=== PATIENT | female | born 1980 | race Caucasian/White ===

== ENCOUNTER 2020-12-25 13:21 | Outpatient (REF) | payer OTHER, SELFPAY | END 2020-12-25 13:22 | disposition home or self-care (01) | LOC: HO.HMGCLDS 13:21 | PROVIDERS: Visit Provider Internal Medicine | DX: Z20.822 Contact with and (suspected) exposure to COVID-19 (principal) | CPT/HCPCS: C9803; U0003; U0005 ==

== ENCOUNTER 2021-11-02 07:24 | Outpatient (REF) | payer OTHER, SELFPAY ==
[2021-11-02 11:44] LABS: Hematocrit 35.4 % (37.0-47.0); Hemoglobin 11.3 g/dl (12.0-16.0); Mean Corpuscular HGB Conc 31.9 g/dl (31.0-35.0); Mean Corpuscular Hemoglobin 26.3 pg (27.0-33.0); Mean Corpuscular Volume 82.3 fL (80.0-98.0); Mean Platelet Volume 11.2 fL (9.4-12.3); Platelet Count 317 X10*3/uL (160-400); Red Cell Distribution Width 15.9 % (11.0-16.0)
[2021-11-02 12:22] LABS: Vitamin D 25-OH Total 22.1 ng/mL (>30)
[2021-11-02 12:31] LABS: Alanine Aminotransferase 12 U/L (0-31); Albumin Level 4.3 g/dL (3.5-5.0); Alkaline Phosphatase 47 U/L (39-117); Anion Gap 11 (12-20); Aspartate Amino Transferase 18 U/L (5-31); Bilirubin Total 0.4 mg/dL (0.0-1.0); Blood Urea Nitrogen 8 mg/dL (9-16); Calcium 9.1 mg/dL (8.4-10.2); Carbon Dioxide 23 mmol/L (22-29); Chloride 109 mmol/L (96-108); Cholesterol 199 mg/dL; Estimated Glomerular Filt Rate > 60; Glucose Fasting 94 mg/dL (60-99); HDL Cholesterol 46 mg/dL; Iron 20 mcg/dL (30-160); LDL Cholesterol Calculated 126 mg/dl; Percent Iron Saturation 6 % (15-50); Potassium 4.1 mmol/L (3.3-5.1); Sodium 139 mmol/L (135-145); Total Iron Binding Capacity 358 mcg/dL (228-428); Total Protein 7.2 g/dL (6.5-8.0); Triglycerides 135 mg/dL; Unsaturated Iron Binding 338 ug/dL
[2021-11-02 12:32] LABS: Folate 13.8 ng/mL (> or = 4.0); Vitamin B12 953 pg/mL (200-900)
== END 2021-11-02 07:25 | disposition home or self-care (01) ==
LOC: HO.HMGCLDS 07:24
PROVIDERS: Visit Provider Internal Medicine
DX: Z00.00 Encounter for general adult medical examination without abnormal findings (principal)
CPT/HCPCS: 36415; 80053; 80061; 82306; 82607; 82746; 83540; 85027

== ENCOUNTER 2022-04-15 11:01 | Outpatient (REF) | payer OTHER, SELFPAY ==
--- NOTE | ~2022-04-15 | XR_ITS ---
EXAMINATION: XR TIBIA AND FIBULA, LEFT CLINICAL INFORMATION: Contusion of the left lower leg COMPARISON: None TECHNIQUE: AP and lateral views of the left tibia and fibula were obtained. FINDINGS: No fracture or cortical disruption. Alignment is appropriate at the knee and ankle. Focal anterior soft tissue swelling at the level of the proximal tibia. XR/XR tibia fibula LT 2V IMPRESSION: Soft tissue swelling anteriorly at the proximal tibia level with no underlying fracture.
== END 2022-04-15 11:02 | disposition home or self-care (01) ==
LOC: HO.HMGCX 11:01
PROVIDERS: Visit Provider Nurse Practitioner Acute Care
DX: S80.12XA Contusion of left lower leg, initial encounter (principal)
CPT/HCPCS: 73590

== ENCOUNTER 2022-07-01 09:09 | Outpatient (REF) | payer OTHER, SELFPAY ==
[2022-07-01 11:25] LABS: MANUAL DIFF FLAG NO
[2022-07-01 11:42] LABS: Basophils Percent Auto 0.5 % (0-2); Eosinophils Absolute Auto 0.1 X10*3/uL (0.0-0.4); Eosinophils Percent Auto 2.3 % (0-4); Hematocrit 40.1 % (37.0-47.0); Hemoglobin 13.5 g/dl (12.0-16.0); Imm Gran Abs Auto 0.02 X10*3/uL (0.00-0.03); Imm Gran Pct Auto 0.3 % (0.0-0.4); Lymphocytes Percent Auto 32.8 % (20-40); Mean Corpuscular HGB Conc 33.7 g/dl (31.0-35.0); Mean Corpuscular Hemoglobin 30.6 pg (27.0-33.0); Mean Corpuscular Volume 90.9 fL (80.0-98.0); Mean Platelet Volume 10.9 fL (9.4-12.3); Monocytes Absolute Auto 0.5 X10*3/uL (0.1-1.2); Monocytes Percent Auto 7.5 % (2-11); Neutrophils Absolute Auto 3.5 x10*3/uL (2.0-8.3); Neutrophils Percent Auto 56.6 % (45-73); Platelet Count 316 X10*3/uL (160-400); Red Blood Count 4.41 X10*6/uL (4.20-5.50); Red Cell Distribution Width 12.9 % (11.0-16.0); White Blood Count 6.1 X10*3/uL (4.8-10.8)
[2022-07-01 12:11] LABS: Iron 80 mcg/dL (30-160); Percent Iron Saturation 25 % (15-50); Total Iron Binding Capacity 314 mcg/dL (228-428); Unsaturated Iron Binding 234 ug/dL
[2022-07-01 12:18] LABS: Vitamin D 25-OH Total 23.4 ng/mL (>30)
[2022-07-01 12:20] LABS: ~Hepatitis B Surface Antibody NONREACTIVE (Nonreactive)
[2022-07-04 21:42] LABS: Rubeola IgG (Measles) >300.00 AU/mL
[2022-07-05 05:51] LABS: TS Negative Control Passed; TS Panel A 4; TS Panel B 0; TS Positive Control Passed; TSpotTB Negative (Negative)
== END 2022-07-01 09:10 | disposition home or self-care (01) ==
LOC: HO.HMGCLDS 09:09
PROVIDERS: PCP Internal Medicine; Visit Provider Internal Medicine
DX: Z00.00 Encounter for general adult medical examination without abnormal findings (principal); Z11.1 Encounter for screening for respiratory tuberculosis; E55.9 Vitamin D deficiency, unspecified; D50.9 Iron deficiency anemia, unspecified
CPT/HCPCS: 36415; 82306; 83540; 85025; 86481; 86706; 86735; 86762; 86765; 86787

== ENCOUNTER 2023-06-01 10:25 | Outpatient (AMB) | payer OTHER, SELFPAY ==
[2023-06-01 10:28] VITALS: BP 122/72; PULSE 75; O2SAT 98; BMI 25.1
--- NOTE | 2023-06-01 10:28 | A.OFFPC_ITS ---
Vital Signs 06/01/23 10:28 Height 5 ft 5 in Weight 151 lb BMI 25.1 BP 122/72 Blood Pressure Location Lt brachial Position Sitting Pulse 75 Pulse Source Pulse Oximeter Pulse Oximetry (%) 98 Oxygen Delivery Method Room Air Intake Visit Reasons: Annual PE Intake Note: Patient is here for her physical today. Is last menstrual period known: Yes Last menstrual period: 05/15/23 Allergies No Known Allergies Allergy (Verified 06/01/23 10:31) Medication List - Last Reconciled 06/01/23 by Carina Lynch MD albuterol sulfate 90 mcg/actuation (Ventolin HFA) 1 inh inhalation QID PRN cholecalciferol (vitamin D3) 25 mcg PO DAILY ferrous sulfate (FeroSul) 325 mg PO DAILY mecobalamin (vitamin B12) 1,000 mcg PO DAILY montelukast 10 mg PO DAILY multivitamin 1 tab PO DAILY Tobacco use date assessed: 06/01/23 Dental Screening Dental Screen Date: 06/01/23 Did you have a dental visit in the last 12 months?: No Did you have a dental problem in the last 6 months where you did not have access to dental care?: No Was dental information given to patient?: No HPI Annual PE HPI Details Patient presents for physical. She complains of restless leg syndrome getting worse for the last few months. Patient has a feeling like she needs to move her legs after sitting for long time. She denies insomnia depression. 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 She misses her fiance who lives in [place] planning to move to .. next year. 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 1. Little interest or pleasure in doing things: not at all 2. Feeling down, depressed, or hopeless: not at all 3. Trouble falling or staying asleep, or sleeping too much: not at all 4. Feeling tired or having little energy: not at all 5. Poor appetite or overeating: not at all 6. Feeling bad about yourself - or that you are a failure or have let yourself or your family down: not at all 7. Trouble concentrating on things, such as reading the newspaper or watching television: not at all 8. Moving or speaking so slowly that other people could have noticed. Or the opposite - being so fidgety or restless that you have been moving around a lot more than usual: not at all 9. Thoughts that you would be better off or of hurting yourself in some way: not at all Total score: 0 Depression Screening Interpretation: Negative Source: Developed by Drs. Jak Talbot, Vandana Calhoun, Mike Ayala and colleagues, with an educational marin from [employer]. Thrive Questionnaire Date Thrive assessed: 11/01/21 I am a: Patient What is your living situation today?: I have a steady place to live Within the past 12 months, did the food you bought not last and you didn't have the money to get more?: Never true Within the past 12 months, did you worry whether your food would run out before you got money to buy more?: Never true Do you have trouble paying for medicines?: No Do you have trouble getting transportation to medical appointments?: No Do you have trouble paying your heating and electricity bill?: No Do you have trouble taking care of your child, family member or friend?: No Do you have trouble with day-to-day activities such as bathing, preparing meals, shopping, managing finances, etc.?: No Are you currently unemployed and looking for a job?: No Are you interested in more education?: No AUDIT C Alcohol Use Questionnaire (AUDIT-C) 1. How often do you have a drink containing alcohol?: Monthly or less 2. How many drinks containing alcohol do you have on a typical day when you are drinking?: 1 or 2 3. How often do you have six or more drinks on one occasion?: Never Total Score: 1 MARIA DOLORES-7 AMB Questionnaire MARIA DOLORES-7 Date MARIA DOLORES - 7 assessed: 11/01/21 Feeling nervous, anxious, or on edge: 0 = Not at all Not being able to stop or control worryin = Not at all Worrying too much about different things: 0 = Not at all Trouble relaxin = Not at all Being so restless that it is hard to sit still: 0 = Not at all Becoming easily annoyed or irritable: 0 = Not at all Feeling afraid as if something awful might happen: 0 = Not at all Total MARIA DOLORES-7 score (0-4 normal; 5-9 mild; 10-14 moderate; 15-21 severe): 0 Source: Developed by Drs. Jak Talbot, Vandana Calhoun, Mike Ayala and colleagues, with an educational marin from [employer]. Review of Systems Const All systems reviewed & are unremarkable except as noted in HPI and below Reports no additional complaints Eyes Reports no additional complaints ENT Reports no additional complaints Card Reports no additional complaints Resp Reports no additional complaints GI Reports no additional complaints Reports no additional complaints Physical exam (Primary Care) Vital Signs: Last Vital Signs Pulse 75 06/01/23 10:28 BP 122/72 06/01/23 10:28 Pulse Ox 98 06/01/23 10:28 Oxygen Delivery Method Room Air 06/01/23 10:28 BMI result Body Mass Index 25.1 Tobacco/Smoking Status: Tobacco use Status Tobacco use date assessed 06/01/23 06/01/23 10:40 Patient Tobacco Use Status Never used Tobacco 06/01/23 10:40 e-Cigarette/Vaping Use Never Used 06/01/23 10:40 PHQ-9: PHQ-9 Score PHQ-9: Total score 0 06/01/23 10:40 Depression Screening Interpretation: Negative Thrive Assessment: Date of Thrive Assessment Date Thrive assessed 11/01/21 06/01/23 10:40 Const General: no acute distress HENMT Head: Yes normal to inspection Ears: hearing grossly normal bilaterally General nose exam: Normal external nose present Mouth: Normal oral and palatal mucosa present Throat: Yes posterior oropharynx normal Eyes General: appearance normal, both eyes and all related structures Neck Neck: Yes no lymphadenopathy and Yes supple Resp Effort & Inspection: normal respiratory effort Auscultation: clear to auscultation bilaterally Cardio Rhythm: regular rhythm Heart sounds: S1 normal heart sound present and S2 normal heart sound present GI Inspection: Yes normal to inspection Palpation (GI): Soft to palpation Percussion: Yes normal to percussion Auscultation: normal bowel sounds Assessment and Plan Assessment & Plan (1) Iron deficiency anemia: Code(s): D50.9 - Iron deficiency anemia, unspecified Plan: Continue iron supplement check iron studies (2) Annual physical exam: Code(s): Z00.00 - Encounter for general adult medical examination without abnormal findings Plan: Well-balanced diet regular exercise discussed with the patient. she will have a mammogram and will return for Pap smear (3) Vitamin D deficiency: Code(s): E55.9 - Vitamin D deficiency, unspecified (4) RLS (restless legs syndrome): Code(s): G25.81 - Restless legs syndrome Plan: TRY ROPINIROLE 0.25 MG Orders: Orders Lipid Panel Today D50.9 - Iron deficiency anemia, unspecified, E55.9 - Vitamin D deficiency, unspecified, Z00.00 - Encounter for general adult medical examination without abnormal findings Vitamin B12 and Folate Today D50.9 - Iron deficiency anemia, unspecified, E55.9 - Vitamin D deficiency, unspecified, Z00.00 - Encounter for general adult medical examination without abnormal findings IRON PROFILE Today D50.9 - Iron deficiency anemia, unspecified Comprehensive [place]. Panel Fast Today D50.9 - Iron deficiency anemia, unspecified, E55.9 - Vitamin D deficiency, unspecified, Z00.00 - Encounter for general adult medical examination without abnormal findings Complete Blood Count Auto Diff Today D50.9 - Iron deficiency anemia, unspeci fied, E55.9 - Vitamin D deficiency, unspecified, Z00.00 - Encounter for general adult medical examination without abnormal findings TSH reflex Free T4 Today D50.9 - Iron deficiency anemia, unspecified, E55.9 - Vitamin D deficiency, unspecified, Z00.00 - Encounter for general adult medical examination without abnormal findings MM screening mammo BI Today Z12.31 - Encounter for screening mammogram for malignant neoplasm of breast Medications: New ropinirole 0.25 mg PO BEDTIME 30 tabs 1RF 30 days Coding Level of Care Code Est Pt Prev Care 40-64y(71953) Diagnoses Iron deficiency anemia D50.9 Annual physical exam Z00.00 Vitamin D deficiency E55.9 RLS (restless legs syndrome) G25.81
== END 2023-06-01 11:36 | disposition home or self-care (01) ==
PROVIDERS: Visit Provider Internal Medicine
DX: D50.9 Iron deficiency anemia, unspecified (principal); Z00.00 Encounter for general adult medical examination without abnormal findings; E55.9 Vitamin D deficiency, unspecified; G25.81 Restless legs syndrome
CPT/HCPCS: 99396

== ENCOUNTER 2023-06-03 08:41 | Outpatient (REF) | payer OTHER, SELFPAY ==
[2023-06-03 11:11] LABS: MANUAL DIFF FLAG NO
[2023-06-03 11:13] LABS: Basophils Percent Auto 0.3 % (0-2); Eosinophils Absolute Auto 0.2 X10*3/uL (0.0-0.4); Eosinophils Percent Auto 2.2 % (0-4); Hematocrit 39.2 % (37.0-47.0); Hemoglobin 13.3 g/dl (12.0-16.0); Imm Gran Abs Auto 0.02 X10*3/uL (0.00-0.03); Imm Gran Pct Auto 0.3 % (0.0-0.4); Lymphocytes Absolute Auto 1.9 X10*3/uL (1.2-4.9); Lymphocytes Percent Auto 27.9 % (20-40); Mean Corpuscular HGB Conc 33.9 g/dl (31.0-35.0); Mean Corpuscular Hemoglobin 30.5 pg (27.0-33.0); Mean Corpuscular Volume 89.9 fL (80.0-98.0); Mean Platelet Volume 11.2 fL (9.4-12.3); Monocytes Absolute Auto 0.5 X10*3/uL (0.1-1.2); Monocytes Percent Auto 7.2 % (2-11); Neutrophils Absolute Auto 4.2 x10*3/uL (2.0-8.3); Neutrophils Percent Auto 62.1 % (45-73); Platelet Count 260 X10*3/uL (160-400); Red Blood Count 4.36 X10*6/uL (4.20-5.50); Red Cell Distribution Width 13.2 % (11.0-16.0); White Blood Count 6.8 X10*3/uL (4.8-10.8)
[2023-06-03 11:36] LABS: Alanine Aminotransferase 18 U/L (0-31); Albumin Level 4.2 g/dL (3.5-5.0); Alkaline Phosphatase 47 U/L (39-117); Anion Gap 8 (12-20); Aspartate Amino Transferase 21 U/L (5-31); Bilirubin Total 0.3 mg/dL (0.0-1.0); Blood Urea Nitrogen 12 mg/dL (9-16); Carbon Dioxide 24 mmol/L (22-29); Chloride 111 mmol/L (96-108); Cholesterol 181 mg/dL (<200); Estimated Glomerular Filt Rate > 60; Glucose Fasting 101 mg/dL (60-99); HDL Cholesterol 41 mg/dL (>40); Iron 49 mcg/dL (30-160); LDL Cholesterol Calculated 120 mg/dL (<100); Percent Iron Saturation 20 % (15-50); Potassium 4.3 mmol/L (3.3-5.1); Sodium 139 mmol/L (135-145); Total Iron Binding Capacity 243 mcg/dL (228-428); Total Protein 7.1 g/dL (6.5-8.0); Triglycerides 102 mg/dL (<150); Unsaturated Iron Binding 194 ug/dL
[2023-06-03 11:53] LABS: TSH reflex Free T4 2.22 uIU/mL (0.32-4.0)
[2023-06-03 12:00] LABS: Folate 9.8 ng/mL (> or = 4.0); Vitamin B12 1049 pg/mL (200-900)
== END 2023-06-03 08:42 | disposition home or self-care (01) ==
LOC: HO.HMGCLDS 08:41
PROVIDERS: PCP Internal Medicine; Visit Provider Internal Medicine
DX: Z00.00 Encounter for general adult medical examination without abnormal findings (principal); D50.9 Iron deficiency anemia, unspecified; E55.9 Vitamin D deficiency, unspecified
CPT/HCPCS: 36415; 80053; 80061; 82607; 82746; 83540; 84443; 85025

== ENCOUNTER 2023-07-01 10:01 | Outpatient (REF) | payer OTHER, SELFPAY ==
--- NOTE | ~2023-07-01 | MM_ITS ---
EXAMINATION: MM SCREENING DIGITAL BREAST TOMOSYNTHESIS, BILATERAL CLINICAL INFORMATION: Screening. Asymptomatic. COMPARISON: Mammography: This is a baseline mammogram. TECHNIQUE: Digital breast tomosynthesis is performed in both the craniocaudal and mediolateral oblique views along with computer-aided detection (CAD). Synthesized 2D images are generated from the tomosynthesis. FINDINGS: The breasts are heterogeneously dense, which may obscure small masses (ACR BI-RADS breast composition Category c). There are no significant masses, abnormal calcifications, or other abnormalities. MM/MM tomosynthesis screening BI IMPRESSION: No mammographic evidence of malignancy. ASSESSMENT: BI-RADS BI-RADS 1 - Negative RECOMMENDATION: Routine annual mammography screening. 1 year F/U This examination should not preclude the clinical evaluation of a suspicious palpable abnormality. This patient's information was entered into a reminder system with a target due date for their next mammogram.
== END 2023-07-01 10:02 | disposition home or self-care (01) ==
LOC: HO.MAMMO 10:01
PROVIDERS: PCP Internal Medicine; Visit Provider Internal Medicine
DX: Z12.31 Encounter for screening mammogram for malignant neoplasm of breast (principal)
CPT/HCPCS: 77063; 77067

== ENCOUNTER → 2023-07-01 10:15 | Outpatient (BNV) | payer OTHER, SELFPAY | PROVIDERS: PCP Internal Medicine; Visit Provider Radiology Diagnostic Radiology | DX: Z12.31 Encounter for screening mammogram for malignant neoplasm of breast (principal) | CPT/HCPCS: 77063; 77067 ==

== ENCOUNTER 2023-09-19 07:26 | Outpatient (AMB) | payer OTHER, SELFPAY ==
[2023-09-19 07:38] VITALS: BP 110/60; PULSE 67; O2SAT 100; BMI 26.0
--- NOTE | 2023-09-19 07:38 | MHC.PC.OV ---
Vital Signs 09/19/23 07:38 Height 5 ft 5 in Weight 156 lb BMI 26.0 BP 110/60 Blood Pressure Location Lt brachial Position Sitting Pulse 67 Pulse Source Pulse Oximeter Pulse Oximetry (%) 100 Oxygen Delivery Method Room Air Intake Visit Reasons: ?palpitations, fatigue Intake Note: Pt is here today c/o palpitations and fatigue Allergies No Known Allergies Allergy (Verified 09/19/23 07:40) Medication List - Last Reconciled 09/19/23 by Carina Lynch MD cholecalciferol (vitamin D3) 25 mcg PO DAILY ferrous sulfate (FeroSul) 325 mg PO DAILY mecobalamin (vitamin B12) 1,000 mcg PO DAILY montelukast 10 mg PO DAILY ropinirole 0.25 mg PO BEDTIME 90 days valacyclovir (Valtrex) 500 mg PO DAILY Tobacco use date assessed: 09/19/23 Dental Screening Dental Screen Date: 09/19/23 Did you have a dental visit in the last 12 months?: Yes Did you have a dental problem in the last 6 months where you did not have access to dental care?: No Was dental information given to patient?: Patient has dentist HPI ?palpitations, fatigue HPI Details Pt c/o 2 weeks feeling fatigued, decreased energy at the end of the day, intermittent fluttering in the chest in the evening when resting. Patient exercises 3 times a week at the gym, cardio and weightlifting and denies any exercise induced palpitations chest pain or shortness of breath. 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 She denies anxiety, depression change in appetite or sleep pattern. Patient usually sleeps about 6 hours a day. 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 1. Little interest or pleasure in doing things: not at all 2. Feeling down, depressed, or hopeless: not at all 3. Trouble falling or staying asleep, or sleeping too much: not at all 4. Feeling tired or having little energy: nearly every day 5. Poor appetite or overeating: not at all 6. Feeling bad about yourself - or that you are a failure or have let yourself or your family down: not at all 7. Trouble concentrating on things, such as reading the newspaper or watching television: not at all 8. Moving or speaking so slowly that other people could have noticed. Or the opposite - being so fidgety or restless that you have been moving around a lot more than usual: not at all 9. Thoughts that you would be better off or of hurting yourself in some way: not at all Total score: 3 Depression Screening Interpretation: Negative Depression Screening Done: Yes Source: Developed by Drs. Jak Talbot, Vandana Calhoun, Mike Ayala and colleagues, with an educational marin from [employer]. Thrive Questionnaire Date Thrive assessed: 09/19/23 I am a: Patient What is your living situation today?: I have a steady place to live Within the past 12 months, did the food you bought not last and you didn't have the money to get more?: Never true Within the past 12 months, did you worry whether your food would run out before you got money to buy more?: Never true Do you have trouble paying for medicines?: No Do you have trouble getting transportation to medical appointments?: No Do you have trouble paying your heating and electricity bill?: No Do you have trouble taking care of your child, family member or friend?: No Do you have trouble with day-to-day activities such as bathing, preparing meals, shopping, managing finances, etc.?: No Are you currently unemployed and looking for a job?: No Are you interested in more education?: No AUDIT C Alcohol Use Questionnaire (AUDIT-C) 1. How often do you have a drink containing alcohol?: Never Total Score: 0 MARIA DOLORES-7 AMB Questionnaire MARIA DOLORES-7 Date MARIA DOLORES - 7 assessed: 09/19/23 Feeling nervous, anxious, or on edge: 0 = Not at all Not being able to stop or control worryin = Not at all Worrying too much about different things: 0 = Not at all Trouble relaxin = Not at all Being so restless that it is hard to sit still: 0 = Not at all Becoming easily annoyed or irritable: 0 = Not at all Feeling afraid as if something awful might happen: 0 = Not at all Total MARIA DOLORES-7 score (0-4 normal; 5-9 mild; 10-14 moderate; 15-21 severe): 0 Source: Developed by Drs. Jak Talbot, Vandana Calhoun, Mike Ayala and colleagues, with an educational marin from [employer]. Review of Systems Const All systems reviewed & are unremarkable except as noted in HPI and below Reports no additional complaints Eyes Reports no additional complaints ENT Reports no additional complaints Card Reports no additional complaints Resp Reports no additional complaints GI Reports no additional complaints Reports no additional complaints Physical exam (Primary Care) Vital Signs: Last Vital Signs Pulse 67 09/19/23 07:38 BP 110/60 09/19/23 07:38 Pulse Ox 100 09/19/23 07:38 Oxygen Delivery Method Room Air 09/19/23 07:38 BMI result Body Mass Index 26.0 Tobacco/Smoking Status: Tobacco use Status Tobacco use date assessed 09/19/23 09/19/23 07:42 Patient Tobacco Use Status Never used Tobacco 09/19/23 07:42 e-Cigarette/Vaping Use Never Used 09/19/23 07:42 PHQ-9: PHQ-9 Score PHQ-9: Total score 3 09/19/23 07:57 Depression Screening Interpretation: Negative Thrive Assessment: Date of Thrive Assessment Date Thrive assessed 09/19/23 09/19/23 07:57 Const General: no acute distress HENMT Ears: hearing grossly normal bilaterally Mouth: Normal oral and palatal mucosa present Eyes General: appearance normal, both eyes and all related structures Resp Effort & Inspection: normal respiratory effort Auscultation: clear to auscultation bilaterally Cardio Rhythm: regular rhythm Heart sounds: S1 normal heart sound present and S2 normal heart sound present GI Inspection: Yes normal to inspection Palpation (GI): Soft to palpation Percussion: Yes normal to percussion Auscultation: normal bowel sounds Assessment and Plan Assessment & Plan (1) RLS (restless legs syndrome): Code(s): G25.81 - Restless legs syndrome Plan: Continue Ropinirole (2) Vitamin D deficiency: Code(s): E55.9 - Vitamin D deficiency, unspecified Plan: Continue vitamin-D and check the level (3) Iron deficiency anemia: Code(s): D50.9 - Iron deficiency anemia, unspecified Plan: Continue iron supplement and check CBC (4) Fatigue: Code(s): R53.83 - Other fatigue Plan: Check CBC comprehensive panel TSH vitamin B12 and D level. Well-balanced exercise regular physical activity, stress management discussed with the patient. Orders: Orders Vitamin D 25-OH Total Today D50.9 - Iron deficiency anemia, unspecified, E55.9 - Vitamin D deficiency, unspecified, G25.81 - Restless legs syndrome, R53.83 - Other fatigue Comprehensive Met. Panel Today D50.9 - Iron deficiency anemia, unspecified, E55.9 - Vitamin D deficiency, unspecified, G25.81 - Restless legs syndrome, R53.83 - Other fatigue Complete Blood Count Auto Diff Today D50.9 - Iron deficiency anemia, unspecified, E55.9 - Vitamin D deficiency, unspecified, G25.81 - Restless legs syndrome, R53.83 - Other fatigue Vitamin B12 and Folate Today D50.9 - Iron deficiency anemia, unspecified, E55.9 - Vitamin D deficiency, unspecified, G25.81 - Restless legs syndrome, R53.83 - Other fatigue TSH reflex Free T4 Today D50.9 - Iron deficiency anemia, unspecified, E55.9 - Vitamin D deficiency, unspecified, G25.81 - Restless legs syndrome, R53.83 - Other fatigue Coding Level of Care Code Est Pt Level 3 (79777) Diagnoses RLS (restless legs syndrome) G25.81 Vitamin D deficiency E55.9 Iron deficiency anemia D50.9 Fatigue R53.83
== END 2023-09-19 08:46 | disposition home or self-care (01) ==
PROVIDERS: PCP Internal Medicine; Visit Provider Internal Medicine
DX: G25.81 Restless legs syndrome (principal); E55.9 Vitamin D deficiency, unspecified; D50.9 Iron deficiency anemia, unspecified; R53.83 Other fatigue
CPT/HCPCS: 99213

== ENCOUNTER 2023-09-19 08:16 | Outpatient (REF) | payer OTHER, SELFPAY ==
[2023-09-19 11:07] LABS: MANUAL DIFF FLAG NO
[2023-09-19 11:10] LABS: Basophils Percent Auto 0.3 % (0-2); Eosinophils Absolute Auto 0.2 X10*3/uL (0.0-0.4); Eosinophils Percent Auto 1.8 % (0-4); Hematocrit 40.2 % (37.0-47.0); Hemoglobin 13.2 g/dl (12.0-16.0); Imm Gran Abs Auto 0.03 X10*3/uL (0.00-0.03); Imm Gran Pct Auto 0.3 % (0.0-0.4); Lymphocytes Absolute Auto 1.9 X10*3/uL (1.2-4.9); Lymphocytes Percent Auto 18.7 % (20-40); Mean Corpuscular HGB Conc 32.8 g/dl (31.0-35.0); Mean Corpuscular Hemoglobin 30.2 pg (27.0-33.0); Mean Platelet Volume 11.1 fL (9.4-12.3); Monocytes Absolute Auto 0.7 X10*3/uL (0.1-1.2); Monocytes Percent Auto 6.8 % (2-11); Neutrophils Absolute Auto 7.4 x10*3/uL (2.0-8.3); Neutrophils Percent Auto 72.1 % (45-73); Platelet Count 285 X10*3/uL (160-400); Red Blood Count 4.37 X10*6/uL (4.20-5.50); Red Cell Distribution Width 13.4 % (11.0-16.0); White Blood Count 10.2 X10*3/uL (4.8-10.8)
[2023-09-19 12:27] LABS: Alanine Aminotransferase 29 U/L (0-31); Albumin Level 4.3 g/dL (3.5-5.0); Alkaline Phosphatase 57 U/L (39-117); Anion Gap 11 (12-20); Aspartate Amino Transferase 25 U/L (5-31); Bilirubin Total 0.5 mg/dL (0.0-1.0); Blood Urea Nitrogen 8 mg/dL (9-16); Carbon Dioxide 25 mmol/L (22-29); Chloride 109 mmol/L (96-108); Estimated Glomerular Filt Rate > 60; Glucose Random 100 mg/dL (60-115); Potassium 3.8 mmol/L (3.3-5.1); Sodium 141 mmol/L (135-145); Total Protein 7.3 g/dL (6.5-8.0)
[2023-09-19 12:36] LABS: Folate 9.9 ng/mL (> or = 4.0); Vitamin B12 1091 pg/mL (200-900)
[2023-09-19 12:45] LABS: TSH reflex Free T4 2.11 uIU/mL (0.32-4.0); Vitamin D 25-OH Total 18.6 ng/mL (>30)
== END 2023-09-19 08:17 | disposition home or self-care (01) ==
LOC: HO.HMGCLDS 08:16
PROVIDERS: PCP Internal Medicine; Visit Provider Internal Medicine
DX: G25.81 Restless legs syndrome (principal); D50.9 Iron deficiency anemia, unspecified; R53.83 Other fatigue; E55.9 Vitamin D deficiency, unspecified
CPT/HCPCS: 36415; 80053; 82306; 82607; 82746; 84443; 85025

== ENCOUNTER 2024-04-08 08:07 | Outpatient (REF) | payer OTHER, SELFPAY ==
[2024-04-08 10:50] LABS: Vitamin D 25-OH Total 55.6 ng/mL (>30)
== END 2024-04-08 08:08 | disposition home or self-care (01) ==
LOC: HO.HMGCLDS 08:07
PROVIDERS: PCP Internal Medicine; Visit Provider Internal Medicine
DX: E55.9 Vitamin D deficiency, unspecified (principal)
CPT/HCPCS: 36415; 82306

== ENCOUNTER 2024-09-04 16:24 | Outpatient (AMB) | payer OTHER, SELFPAY ==
--- NOTE | 2024-09-04 16:29 | MHC.OFFWIV ---
Intake Vital Signs 09/04/24 16:30 Height 5 ft 5 in BP 120/80 Blood Pressure Location Lt brachial Position Sitting Pulse 80 Pulse Source Pulse Oximeter Temp 98.2 F Temp Source Oral Pulse Oximetry (%) 98 Oxygen Delivery Method Room Air Intake Visit Reasons: EP sore throat, congestion Intake Note: Patient here for congestion, cough, runny nose and headache that started about 2 days. Patient Tobacco Use Status: Never used Tobacco Allergies No Known Allergies Allergy (Verified 09/04/24 16:31) Do you need a note to return to daycare/school/sports/work: No HPI EP sore throat, congestion HPI Details This note is constructed using voice recognition software. While every effort has been made to ensure accuracy, supervisor testing errors may have been included. The patient is a 43 year old female who presents to the clinic today with cough, congestion, body aches, sore throat, fevers since yesterday. She has been taking Tylenol and naproxen for her symptoms, with little relief. She denies shortness of breath. 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 Cognitive needs: No Hearing needs: No Vision needs: No Review of Systems Const All systems reviewed & are unremarkable except as noted in HPI and below Physical Exam Vital Signs: Last Vital Signs Temp 98.2 F 09/04/24 16:30 Pulse 80 09/04/24 16:30 BP 120/80 09/04/24 16:30 Pulse Ox 98 09/04/24 16:30 Oxygen Delivery Method Room Air 09/04/24 16:30 Const General: cooperative, healthy appearing, comfortable and no acute distress Orientation/consciousness: patient oriented x3 Limitations: no limitations HEENT Head: Yes normal to inspection Ears: hearing grossly normal bilaterally, external ears normal, EAC's normal, mastoids normal (no TTP) bilaterally and TM abnormal (on the left) bulging and erythematous General nose exam: Normal external nose present, Normal nares present and No nasal discharge present Face and sinus: Yes normal facial exam and Yes sinuses nontender Mouth: Normal oral and palatal mucosa present and moist mucous membranes Throat: Yes tonsils normal, Yes uvula midline and Yes posterior oropharynx abnormal (Erythema) Eyes General: appearance normal, both eyes and all related structures Neck Neck: Yes normal visual inspection Resp Effort & Inspection: normal respiratory effort, able to speak in complete sentences, Actively coughing, no respiratory distress, not tachypneic, no tripod positioning and no use of accessory muscles Auscultation: clear to auscultation bilaterally Cardio Jugular venous distension: no JVD Rate: regular rate Rhythm: regular rhythm Heart sounds: S1 normal heart sound present, S2 normal heart sound present, no click, no gallops, no murmurs and no rubs Skin General skin exam: no rashes or lesions noted, elasticity normal and turgor normal Neuro General: patient oriented x3 Extrem General: Yes normal to inspection and Yes no clubbing, cyanosis or edema Results AMB Rapid Strep AMB Rapid Strep Negative Last Edit by AMNA Winter on 09/04/24 16:44 Assessment & Plan Assessment & Plan (1) Otitis media: Code(s): H66.90 - Otitis media, unspecified, unspecified ear Qualifiers: Otitis media type: suppurative Chronicity: acute Laterality: left Recurrence: non-recurrent Spontaneous tympanic membrane rupture: without spontaneous rupture Qualified Code(s): H66.002 - Acute suppurative otitis media without spontaneous rupture of ear drum, left ear Plan: Supportive measures encouraged and reviewed. Antibiotic sent to requested pharmacy, advised patient to take antibiotics until completed and not to stop if feeling better, unless the patient has side effects. Advised patient to follow up with primary care provider with worsening or failure to resolve. Viral swab obtained to rule out Covid, Influenza, and RSV based on symptoms. Advised mask wearing while symptomatic and quarantine per current CDC guidelines. Reviewed at home support methods including hydration, humidification, vix vapor rub, sinus rinse, and otc treatment options. Discussed treatment with antiviral therapy for covid with paxlovid and with Tamiflu for influenza, including appropriate use and side effects, and need to start medication within 5 day of symptom onset, preferably within 48 hours of symptom onset. Patient wishes to proceed with tamiflu and decline paxlovid antiviral therapy if positive testing. Advised follow up with worsening symptoms such as dyspnea at rest, which would require emergent evaluation. Plan See above for full details and plan. Orders: Orders SARS-CoV2/FLU/RSV Today J06.9 - Acute upper respiratory infection, unspecified AMB Rapid Strep Screen Today Z13.9 - Encounter for screening, unspecified Medications: New amoxicillin-pot clavulanate 875-125 mg 1 tab PO BID 7 days 14 tabs 0RF Coding Level of Care Code Est Pt Level 3 (84298) Diagnoses Non-recurrent acute suppurative otitis media of left ear without spontaneous rupture of tympanic membrane H66.002 Otitis media type: suppurative Chronicity: acute Laterality: left Recurrence: non-recurrent Spontaneous tympanic membrane rupture: without spontaneous rupture
[2024-09-04 16:30] VITALS: BP 120/80; PULSE 80; TEMP 36.8; O2SAT 98
== END 2024-09-04 16:47 | disposition home or self-care (01) ==
PROVIDERS: PCP Internal Medicine; Visit Provider Registered Nurse
DX: Z13.9 Encounter for screening, unspecified (principal); H66.002 Acute suppurative otitis media without spontaneous rupture of ear drum, left ear

== ENCOUNTER 2024-09-04 16:24 | Outpatient (REF) | payer OTHER, SELFPAY ==
[2024-09-05 12:32] LABS: Influenza A PCR NEGATIVE (Negative); Influenza B PCR NEGATIVE (Negative); Resp Syncy Virus RNA Qual PCR NEGATIVE (Negative); SARS COV2 PCR INHOUSE POSITIVE (Negative)
== END 2024-09-04 16:25 | disposition home or self-care (01) ==
LOC: HO.LNP 16:24
PROVIDERS: PCP Internal Medicine; Visit Provider Registered Nurse
DX: J06.9 Acute upper respiratory infection, unspecified (principal)
CPT/HCPCS: 0241U; 87880

== ENCOUNTER 2025-07-02 08:12 | Outpatient (REF) | payer OTHER, SELFPAY ==
--- OUTSIDE RECORDS SUMMARY | 2025-07-01 14:45 | XMS_ITS | Encounter Summary ---
Author Organization [employer] Address [address] [facility] [address] [place] [address] Care Team Providers Care Machine Tender Name Role Phone Unavailable Primary Care Provider Unavailabl e Reason for Referral * Consultation (Routine) - Authorized Specialty Diagnoses / Procedures Referred By Contac t Referred To Contact Cardiology Diagnoses Other chest pain SOB (shortness of breath) Nicole Patel MD [address] [place] [address] Phone: tel: fax: [facility] [address] [place] [address] Phone: tel: fax: Referral ID Status Reason Start Date Expiration Date Visits Requested Visits Authorized [id number] Authorized Specialty Services Required 5 07/01/2026 1 1 * Imaging (Routine) - Authorized Specialty Diagnoses / Procedures Referred By Contac t Referred To Contact Radiology Diagnoses Encounter for screening mammogram for malignant neoplasm of breast Procedures BI Mammogram Screening Tomosynthesis Bilateral Nicole Patel MD [address] [place] [address] Phone: tel: fax: [facility] [address] [place], [place] Phone: tel: fax: Referral ID Status Reason Start Date Expiration Date V isits Requested Visits Authorized [id number] Authorized 07/01/2025 07/01/2026 1 1 * Consultation (Routine) - Pending Review Specialty Diagnoses / Procedures Referred By Contlouise t Referred To Contact Obstetrics and Gynecology Diagnoses Pap smear for cervical cancer screening Nicole Patel MD [address] [place] [address] Phone: tel: fax: Referral ID Status Reason Start Date Expiration Date Visits Requested Visits Authorized [id number] Pending Review Specialty Services Required 07/01/2026 1 1 Scheduling Instructions Refer to [facility] Encounter Details Date Type Department Care Team (Late st Contact Info) Description 07/01/2025 2:45 PM EDT Telemedicine [facility] [address] [place] [id number] Nicole Patel MD [address] [place] [phone] Pap smear for cervical cancer screening (Primary Dx); Cold sore; Seasonal allergies; Encounter for screening mammogram for malignant neoplasm of breast; Other chest pain; SOB (shortness of breath); Iron deficiency anemia, unspecified iron deficiency anemia type; Anxiety; RLS (restless legs syndrome) Social History Tobacco Use Types Packs/Day Years Used Date Smoking Tobacco: Former Cigarettes Passive Smoke Exposure: Never Smokeless Tobacco: Never Comments Unknown Sex and Gender Information Value Date Recorded Sex Assigned at Female 07/18/2022 10:22 AM EDT Legal Sex Female 10:22 AM EDT Gender Identity Female 07/18/2022 10:22 AM EDT Sexual Orientation Lesbian or Rubi 07/18/2022 10 :22 AM EDT documented as of this encounter Progress Notes * Nicole Yoder MD - 07/01/2025 2:45 PM EDT SUBJECTIVE: Josi Wise is a 44 y.o. year old female who presents for New patient . 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 Lives with: and kid - EtOH socially once a month 2 drinks - smoking cigarettes denies - recreational drug use denies Diet:regular Exercise:sedentary LMP:regular 06/12/25 Surgeries/Hospitalizations: none PAP smear: referral done today Mammogram due PMHx:anemia, vitamin b deficiency, restless leg syndrome, seasonal allergies FMHx:father diabetes, mother RA, fibromyalgia, benign brain tumor, brother psoriatic arthritis, grandmother alzheimer's, breast cancer, grandfather stomach cancer Immunizations: Acute Concerns: Chest discomfort left side with deep inspiration, and sometimes pressure like, sometimes accompanied nausea, SOB 2 months ago ankle sprain better now Anxiety, restless patient has been going through new changes in her life Patient reports she has cold sores that comes and goes on her lip area generally in winter for thathe was prescribed Valtrex which helped, she was wondering if new prescription can be sent to the pharmacy today Social History Social History Narrative Not on file Problem List[1] Family History[2] Review of Systems Constitutional: Negative. HENT: Negative. Respiratory: Negative. Cardiovascular: Positive for chest pain. Negative for palpitations and leg swelling. Follow Up: No follow-ups on file. Medications Ordered Prior to Encounter[3] Problem List Items Addressed This Visit Cold sore Relevant Medications valACYclovir (Valtrex) 500 MG tablet Seasonal allergies Relevant Medications montelukast (Singulair) 10 MG tablet Encounter for screening mammogram for malignant neoplasm of breast Relevant Orders BI Mammogram Screening Tomosynthesis Bilateral Other chest pain Relevant Orders Comprehensive Metabolic Panel Hemoglobin A1c HIV-1/2 Antigen and Antibodies, Fourth Generation, with Reflexes Hepatitis C Antibody with Reflex to HCV, RNA, Quantitative, Real-Time PCR Lipid Panel, Standard Vitamin D, 25-Hydroxy, Total, Immunoassay TSH with Reflex to Free T4 Referral to Cardiology SOB (shortness of breath) Relevant Orders Vitamin D, 25-Hydroxy, Total, Immunoassay TSH with Reflex to Free T4 Referral to Cardiology Iron deficiency anemia Relevant Orders CBC auto differential Iron And Total Iron Binding Capacity Ferritin Vitamin B12/Folate, Serum Panel Anxiety Relevant Orders TSH with Reflex to Free T4 RLS (restless legs syndrome) Relevant Orders CBC auto differential Other Visit Diagnoses Pap smear for cervical cancer screening - Primary Relevant Orders Referral to Obstetrics / Gynecology [1] Patient Active Problem List Diagnosis Tipped teeth Dental abscess Dental caries Dental calculus Gingival bleeding Cold sore Seasonal allergies Encounter for screening mammogram for malignant neoplasm of breast Other chest pain SOB (shortness of breath) Iron deficiency anemia Anxiety RLS (restless legs syndrome) [2] Family History Problem Relation Name Age of Onset Glaucoma Mother Other (dry eyes) Mother [3] Current Outpatient Medications on File Prior to Visit Medication Sig Dispense Refill albuterol 108 (90 Base) MCG/ACT inhaler INHALE 1 PUFF 4 TIMES DAILY NEEDED FOR SHORTNESS OF BREAT/WHEEZING cyanocobalamin (Vitamin B-12) 100 MCG tablet Take 100 mcg by mouth in the morning. ferrous sulfate 325 (65 Fe) MG tablet Take 325 mg by mouth with breakfast. montelukast (Singulair) 10 MG tablet Take 10 mg by mouth in the morning. valACYclovir (Valtrex) 500 MG tablet No current facility-administered medications on file prior to visit. documented in this encounter Plan of Treatment Scheduled Orders Name Type Priority Associated Diagnoses Orde r Schedule BI Mammogram Screening Tomosynthesis Bilateral Imaging Routine Encounter for screening mammogram for malignant neoplasm of breast Expected: 07/01/2025, Expires: 08/31/2026 CBC auto differential Lab Routine Iron deficiency anemia, unspecified iron deficiency anemia type RLS (restless legs syndrome) Expected: 07/01/2025 (Approximate), Expires: 07/01/2026 Comprehensive Metabolic Panel Lab Routine Other chest pain Expected: 07/01/2025 (Approximate), Expires: 07/01/2026 Hemoglobin A1c Lab Routine Other chest pain Expected: 07/01/2025 (Approximate), Expires: 07/01/2026 HIV-1/2 Antigen and Antibodies, Fourth Generation, with Reflexes Lab Routine Other chest pain Expected: 07/01/2025 (Approximate), Expires: 07/01/2026 Hepatitis C Antibody with Reflex to HCV, RNA, Quantitative, Real-Time PCR Lab Routine Other chest pain Expected: 07/01/2025, Expires: 07/01/2026 Lipid Panel, Standard Lab Routine Other chest pain Expected: 07/01/2025 (Approximate), Expires: 07/01/2026 Vitamin D, 25-Hydroxy, Total, Immunoassay Lab Routine Other chest pain SOB (shortness of breath) Expected: 07/01/2025 (Approximate), Expires: 07/01/2026 TSH with Reflex to Free T4 Lab Routine Other chest pain SOB (shortness of breath) Anxiety Expected: 07/01/2025 (Approximate), Expires: 07/01/2026 Iron And Total Iron Binding Capacity Lab Routine Iron deficiency anemia, unspecified iron deficiency anemia type Expected: 07/01/2025, Expires: 07/01/2026 Ferritin Lab Routine Iron deficiency anemia, unspecified iron deficiency anemia type Expected: 07/01/2025, Expires: 07/01/2026 Vitamin B12/Folate, Serum Panel Lab Routine Iron deficiency anemia, unspecified iron deficiency anemia type Expected: 07/01/2025, Expires: 07/01/2026 Scheduled Referrals Name Type Priority Associated Diagnoses Order Schedule Referral to Obstetrics / Gynecology Outpatient Referral Routine Pap smear for cervical cancer screening Expected: 07/01/2025 (Approximate), Expires: 07/01/2026 Referral to Cardiology Outpatient Referral Routine Other chest pain SOB (shortness of breath) Expected: 07/01/2025 (Approximate), Expires: 07/01/2026 documented as of this encounter Visit Diagnoses Diagnosis Pap smear for cervical cancer screening- Primary Screening for malignant neoplasm of the cervix Cold sore Herpes simplex without mention of complication Seasonal allergies Allergic rhinitis, cause unspecified Encounter for screening mammogram for malignant neoplasm of breast Other chest pain SOB (shortness of breath) Shortness of breath Iron deficiency anemia, unspecified iron deficiency anemia type Anxiety Anxiety state, unspecified RLS (restless legs syndrome) Restless legs syndrome (RLS) documented in this encounter
--- OUTSIDE RECORDS SUMMARY | 2025-07-02 08:28 | XMS_ITS | Encounter Summary ---
Author Organization [employer] Address [address] [place] [address] Care Team Providers Care Pipe Finishing Supervisor Name Role Phone Unavailable Primary Care Provider Unavailabl e Encounter Details Date Type Department Care Team (Latest Contact Info) Description 06/30/2025 Travel Social History Tobacco Use Types Packs/Day Years [...] AM EDT documented as of this encounter Plan of Treatment Not on file documented as of this encounter Visit Diagnoses Not on filedocumented in this encounter
--- OUTSIDE RECORDS SUMMARY | 2025-07-02 08:28 | XMS_ITS | Encounter Summary ---
Author Organization [email or web address] Address [address] [place] [address] [place] [address] Care Team Providers Care Pierce And Shave Press Operator Name Role Phone Unavailable Primary Care Provider Unavailabl e Reason for Visit * Reason Comments Med Refill Encounter Details Date Type Department Care Team (Late st Contact Info) Description 10/25/2024 Refill [facility] [address] [place] [address] Nicole Donahue MD [address] [place] [address] Social History Tobacco Use Types Packs/Day Years [...]
--- OUTSIDE RECORDS SUMMARY | 2025-07-02 08:28 | XMS_ITS ---
Author Name [facility] Organization Unknown Problems Problem Status Onset Date Problem Type Date of Resoluti on Source Sprain of right ankle active 2025-03-27 ProblemAct ENS_AONECT Encounters Encounter Type Encounter Reason Primary Diagnosis Location Date Ambulatory [facility] [place] 05/25/2025 Ambulatory [facility] [place] 04/26/2025 Ambulatory [facility] [place] 03/28/2025 Ambulatory [facility] [place] 03/28/2025 Ambulatory [facility] [place] 03/28/2025 Ambulatory [facility] [place] 03/27/2025 Ambulatory [facility] [place] 03[facility]27/2025 Ambulatory [facility] [place] 03/27/2025 Ambulatory [facility] [place] 03/27/2025 Ambulatory [facility] [place] 03/24/2025 Ambulatory [facility] [place] 03/24/2025
--- OUTSIDE RECORDS SUMMARY | 2025-07-02 08:28 | XMS_ITS | Encounter Summary ---
Author Organization [employer] Address [address] [place] [address] Care Team Providers Care Fry Cook Name Role Phone Unavailable Primary Care Provider Unavailabl e Encounter Details Date Type Department Care Team (Latest Contact Info) Description 07/01/2025 Travel Social History Tobacco Use Types Packs/Day [...]
--- OUTSIDE RECORDS SUMMARY | 2025-07-02 08:28 | XMS_ITS | Clinical Summary ---
Author Organization [employer] Address [address] [facility] [address] [place] [address] Care Team Providers Care Supervisor Coke Handling Name Role Phone Unavailable Primary Care Provider Unavailabl e Allergies No known active allergies Medications albuterol 108 (90 Base) MCG/ACT inhaler INHALE 1 PUFF 4 TIMES DAILY NEEDED FOR SHORTNESS OF BREAT/WHEEZING 3 Active montelukast (Singulair) 10 MG tablet Take 10 mg by mouth in the morning. 3 Active valACYclovir (Valtrex) 500 MG tablet 3 Active ferrous sulfate 325 (65 Fe) MG tablet Take 325 mg by mouth with breakfast. Active cyanocobalamin (Vitamin B-12) 100 MCG tablet Take 100 mcg by mouth in the morning. Active valACYclovir (Valtrex) 500 MG tabletIndicatio ns:Cold sore Take 1 tablet (500 mg) by mouth 2 times daily for 7 days. 14 tablet 5 07/08/20 25 Active montelukast (Singulair) 10 MG tabletIndicatio ns:Seasonal allergies Take 1 tablet (10 mg) by mouth Once per day. 30 tablet 11 5 07/01/20 26 Active Active Problems Problem Noted Date Diagnosed Date Cold sore 07/01/2025 Seasonal allergies 07/01/2025 Encounter for screening mamm ogram for malignant neoplasm of breast 07/01/2025 Other chest pain 07/01/2025 SOB (shortness of breath) 07/01/2025 Iron deficiency anemia 07/01/2025 Anxiety 07/01/2025 RLS (restless legs syndrome) 07/01/2025 Tipped teeth 09/01/2023 Dental abscess 09/01/2023 Dental caries 09/01/2023 Dental calculus 09/01/2023 Gingival bleeding 09/01/2023 Encounters Date Type Department Care Team Description 07/01/2025 2:45 PM EDT Telemedicine [facility] [address] [place] [phone] Nicole Patel MD Pap smear for cervical cancer screening (Primary Dx); Cold sore; Seasonal allergies; Encounter for screening mammogram for malignant neoplasm of breast; Other chest pain; SOB (shortness of breath); Iron deficiency anemia, unspecified iron deficiency anemia type; Anxiety; RLS (restless legs syndrome) 07/01/2025 Travel 06/30/2025 Travel from Last 3 Months Immunizations Immunization Administration Dates Next Due Influenza, seasonal, injectable, preservative fr ee 06/05/2024 Family History Medical History Relation Name Comments Glaucoma Mother dry eyes Mother Relation Name Status Comments Mother Social History Tobacco Use Types Packs/Day Years Used Date Smoking Tobacco: Former Cigarettes Passive Smoke Exposure: Never Smokeless Tobacco: Never Tobacco Cessation:Counseling Given: Not Answered Comments Unknown Sex and Gender Information Value Date Recorded Sex Assigned at Female 07/18/2022 10:22 AM EDT Legal Sex Female 10:22 AM EDT Gender Identity Female 07/18/2022 10:22 AM EDT Sexual Orientation Lesbian or Rubi 07/18/2022 10 :22 AM EDT Last Filed Vital Signs Vital Sign Reading Time Taken Comments Blood Pressure 110/66 09/01/2023 8:10 AM EST Pulse 68 09/01/2023 8:10 AM EST Temperature - - Respiratory Rate - - Oxygen Saturation - - Inhaled Oxygen Concentration - - Weight - - Height - - Body Mass Index - - Plan of Treatment Health Maintenance Due Date Last Done Comments Depression Screening 1981 HIV Screening 1981 SDOH Screening 1981 Alcohol/Substance Use Screening 1993 Family Planning (PISQ) 1996 HPV Vaccines (1 - 3-dose series) 1996 Hepatitis C Screening 11/28/1999 Pap Smear 2002 Cervical Cancer Screening 11/28/2011 HPV/Cotest 11/28/2011 Mammogram 2021 Hepatitis B Vaccines (2 of 3 - 19+ 3-dose series) 08/08/2022 07/11/2022 Dental Oral Exam 03/03/2024 09/01/2023 Dental Prophylaxis 03/03/2024 09/01/2023 Dental X-Ray: Bitewings 09/02/2024 09/01/2023 Tobacco Screening 03/28/2025 03/28/2024 COVID-19 Vaccine ( season) 2025 06/03/2022, 08/06/2021, 01/20/2021, Additional history exists Influenza Vaccine (#1) 2025 , 06/03/2022, 08/06/2021 Disability Screening 06/30/2026 06/30/2025 Dental X-Ray: Full Mouth 09/02/2026 09/01/2023 Zoster Vaccines (1 of 2) 11/28/2031 DTaP/Tdap/Td Vaccines (3 - Td or Tdap) 07/01/2032 07/01/2022, 08/28/2013 RSV Patients and Patients Aged 60 years or older (1 - 1-dose 75+ series) 2056 HIB Vaccines Aged Out No longer eligi ble based on patient's age to complete this topic Hepatitis A Vaccines Aged Out No long er eligible based on patient's age to complete this topic IPV Vaccines Aged Out No longer eligi ble based on patient's age to complete this topic Meningococcal B Vaccine Aged Out No l onger eligible based on patient's age to complete this topic Meningococcal Vaccine Aged Out No daljit calixto eligible based on patient's age to complete this topic Pneumococcal Vaccine: Pediatrics (0 to 5 Years) and At-Risk Patients (6 to 49) Years Aged Out No longer eligible based on patient's age to complete this topic RSV under 20 months Aged Out No longe r eligible based on patient's age to complete this topic Rotavirus Vaccines Aged Out No longer eligible based on patient's age to complete this topic Procedures Procedure Name Priority Date/Time Associated Diagnosis Comments PROPHYLAXIS - ADULT Routine 09/01/2023 8 :00 AM EST Dental calculus INTRAORAL - COMPLETE SERIES OF RADIOGRAPHIC IMAGES Routine 09/01/2023 8:00 AM EST Tipped teeth Dental abscess Dental caries Dental calculus Gingival bleeding PERIODIC ORAL EVALUATION - ESTABLISHED PATIENT Routine 09/01/2023 8:00 AM EST from Last 3 Months or Most Recently Relevant to Health Maintenance Insurance [facility] , [address] [place] [address] DENTAL - [facility]
[2025-07-02 11:13] LABS: MANUAL DIFF FLAG NO
[2025-07-02 11:28] LABS: Hematocrit 37.8 % (37.0-47.0); Hemoglobin 12.8 g/dl (12.0-16.0); Imm Gran Abs Auto 0.02 X10*3/uL (0.00-0.03); Imm Gran Pct Auto 0.3 % (0.0-0.4); Lymphocytes Absolute Auto 2.1 X10*3/uL (1.2-4.9); Mean Corpuscular HGB Conc 33.9 g/dl (31.0-35.0); Mean Corpuscular Hemoglobin 29.8 pg (27.0-33.0); Mean Corpuscular Volume 88.1 fL (80.0-98.0); NRBC Abs Auto 0.000 X10*3/uL (0.0-0.012); NRBC Pct Auto 0.0 /100WBC (0.0-0.2); Platelet Count 285 X10*3/uL (160-400); Red Blood Count 4.29 X10*6/uL (4.20-5.50); White Blood Count 7.8 X10*3/uL (4.8-10.8)
[2025-07-02 12:05] LABS: Alanine Aminotransferase 45 U/L (0-31); Albumin Level 4.5 g/dL (3.5-5.0); Alkaline Phosphatase 50 U/L (39-117); Anion Gap 11 (12-20); Aspartate Amino Transferase 27 U/L (5-31); Blood Urea Nitrogen 11 mg/dL (9-16); Calcium 9.0 mg/dL (8.4-10.2); Carbon Dioxide 21 mmol/L (22-29); Chloride 111 mmol/L (96-108); Cholesterol 238 mg/dL (<200); Estimated Glomerular Filt Rate > 60; Ferritin 30 ng/mL (10-250); HDL Cholesterol 39 mg/dL (>40); Iron 126 mcg/dL (30-160); Percent Iron Saturation 51 % (15-50); Potassium 3.8 mmol/L (3.3-5.1); Sodium 139 mmol/L (135-145); Total Iron Binding Capacity 245 mcg/dL (228-428); Total Protein 7.2 g/dL (6.5-8.0); Triglycerides 205 mg/dL (<150); Unsaturated Iron Binding 119 ug/dL
[2025-07-02 12:13] LABS: Folate 7.3 ng/mL (> or = 4.0); Vitamin B12 622 pg/mL (200-900)
[2025-07-03 04:59] LABS: HIV Num 1 0.04 S/CO (0.00-0.99); ~HepC Num1 0.16 S/CO (0.00-0.79); ~Hepatitis C Antibody Nonreactive (Nonreactive)
== END 2025-07-02 08:13 | disposition home or self-care (01) ==
LOC: HO.HHCL 08:12
PROVIDERS: PCP Internal Medicine; Visit Provider Internal Medicine
DX: Z11.59 Encounter for screening for other viral diseases (principal); Z11.4 Encounter for screening for human immunodeficiency virus [HIV]; Z13.1 Encounter for screening for diabetes mellitus; D50.9 Iron deficiency anemia, unspecified; F41.9 Anxiety disorder, unspecified; R07.89 Other chest pain; R06.02 Shortness of breath
CPT/HCPCS: 36415; 80053; 80061; 82306; 82607; 82728; 82746; 83036; 83540; 84443; 85025; 86803; 87389

== ENCOUNTER 2025-08-25 12:46 | Outpatient (REF) | payer OTHER, SELFPAY ==
--- NOTE | ~2025-08-25 | MM_ITS ---
EXAMINATION(S): 1. MM DIAGNOSTIC DIGITAL BREAST TOMOSYNTHESIS, LEFT 2. TARGETED ULTRASOUND OF THE LEFT BREAST CLINICAL INFORMATION: Left breast pain. According to the patient, pain in the entire left breast, but mainly superior and lateral. COMPARISON: December 24, 2024 and July 01, 2023 TECHNIQUE: Digital breast tomosynthesis is performed in both the mediolateral oblique and craniocaudal views along with computer-aided detection (CAD). Synthesized 2D images are generated from the tomosynthesis. FINDINGS: BREAST COMPOSITION: The breasts are heterogeneously dense, which may obscure small masses. LEFT BREAST: No significant masses, suspicious calcifications or other abnormalities are seen. Targeted ultrasound of the left breast was performed at the location of the focal pain that was mainly in the upper outer quadrant. The survey did not reveal suspicious sonographic findings. MM/MM tomosynthesis diagnostic LT IMPRESSION: LEFT BREAST: Negative, no evidence of malignancy. Normal interval follow-up is recommended in 12 months. ASSESSMENT: BI-RADS: Category 1: Negative RECOMMENDATION: 1. Patient should be managed based on the clinical impression. 2. Otherwise, routine annual screening mammography. Results were provided to the patient at time of visit by the technologist. This patient's information was entered into a reminder system with a target due date for their next mammogram. Electronically signed by: Gabi Cruz MD 08/25/2025 04:07 PM LEE
== END 2025-08-25 12:47 | disposition home or self-care (01) ==
LOC: HO.MAMMO 12:46
PROVIDERS: PCP Internal Medicine; Visit Provider Internal Medicine
DX: N64.4 Mastodynia (principal)
CPT/HCPCS: 76642; 77061; 77065

== ENCOUNTER → 2025-08-25 13:30 | Outpatient (BNV) | payer OTHER, SELFPAY | PROVIDERS: PCP Internal Medicine; Visit Provider Radiology Body Imaging | DX: N64.4 Mastodynia (principal) | CPT/HCPCS: 76642; 77061; 77065 ==